=== PATIENT | female | born 1975 | race African-American/Black ===

== ENCOUNTER → 2017-04-19 | Outpatient (CLI) | payer OTHER ==
--- NOTE | ~2017-04-19 | MY29 ---
[facility] A Service of [facility] RADIOLOGY TEXT RESULTS PATIENT: NANDO HOLT LOCATION: [facility] : 71 UNIT #: [id number] AGE: [address]: MARIA E ESTEVEZ MD SEX: F ORDER DR: [id number] [place], [place] [address] [id number] O MR#: [id number] Acc #: [id number] NAME: NANDO HOLT : 1975 SEX: F STUDY DATE/TIME: 04/19/2017 8:01 UNIT: [facility] ROOM: STUDY DESCRIPTION: MY ARACELIS SCREENING W/ CAD BILAT Attending Physician: Maria E Estevez M.D. Referring Physician: Maria E Estevez M.D. Ordering Physician: Maria E Estevez M.D. Primary Care Physician: Maria E Estevez M.D. MEDICAL IMAGING REPORT This report is preliminary unless electronic signature is present EXAM Digital screening mammogram, 04/19/2017 HISTORY 41-year-old woman positive family history, 2 aunts/2 cousins. Annual screening. COMPARISON 03/11/2003, 08/13/2014, 01/18/2016 FINDINGS Digital imaging of each breast was completed utilizing a two-view examination of each breast in craniocaudal and mediolateral-oblique projections. Review and interpretation of digital mammograms include a second review in conjunction with FDA-approved CAD device. There is a normal parenchymal presentation bilaterally consistent with the patient's age. There are no breast masses imaged and no parenchymal asymmetry is visualized. There are no suspicious microcalcifications and I see no focal architectural disturbance. IMPRESSION Negative screening digital mammogram. One-year followup recommended. Patients over the age of 40 are entered into a reminder system with target due date for the next mammogram. A result letter will also be sent to the patient. BIRADS: 1 Negative ADDENDUM Breast parenchyma is fatty replaced. Dictated by... [facility] A Service [facility] RADIOLOGY TEXT RESULTS PATIENT: NANDO HOLT LOCATION: [facility] : 71 UNIT #: [id number] AGE: [address]: MARIA E ESTEVEZ MD SEX: F ORDER DR: Amadou Jerez M.D. THIS IS AN ELECTRONICALLY VERIFIED REPORT Amadou Jerez M.D. at 04/19/2017 12:22 PM Dionne TD: 04/19/2017 10:47 JOB #: [id number] MEDICAL IMAGING REPORT Page 1 of 1 COPY
== END | disposition home or self-care (01) ==
LOC: CWCC 07:40
DX: Z12.31 Encounter for screening mammogram for malignant neoplasm of breast (principal); Z80.3 Family history of malignant neoplasm of breast; R92.8 Other abnormal and inconclusive findings on diagnostic imaging of breast
CPT/HCPCS: G0202